=== PATIENT | female | born 2000 | race Caucasian/White ===

== ENCOUNTER 2022-07-22 13:49 | Outpatient (CLI) | payer BC | END 2022-07-22 13:50 | disposition home or self-care (01) | LOC: CSHULT 13:49 | PROVIDERS: ATTEND Family Medicine | DX: Z34.02 Encounter for supervision of normal first pregnancy, second trimester (principal); Z3A.20 20 weeks gestation of pregnancy | CPT/HCPCS: 76805 ==

== ENCOUNTER 2022-12-09 12:59 | Inpatient (IN) | payer BC, OTHER ==
[2022-12-09] MEDS ORDERED: Misoprostol 200 MCG TAB PR PRN (20:02)
[2022-12-09] MEDS ORDERED: Methylergonovine 0.2 MG/ML VIAL IM PRN (20:02)
[2022-12-09] MEDS ORDERED: Acetaminophen 500 MG TAB PO PRN (20:02)
[2022-12-09] MEDS ORDERED: Diphenoxylate HCl/Atropine Tablet PO PRN (20:02)
[2022-12-09] MEDS ORDERED: hydrALAZINE 20 MG/ML VIAL SLOW IVP PRN (20:02)
[2022-12-09] MEDS ORDERED: HYDROcodone/Acetaminophen 5/325 mg Tablet PO PRN (20:02)
[2022-12-09] MEDS ORDERED: Lactated Ringer's 1,000 ML IV SCH (20:02)
[2022-12-09] MEDS ORDERED: Promethazine HCl 25 MG/ML VIAL IM PRN (20:02)
[2022-12-09] MEDS ORDERED: Tranexamic Acid 1,000 MG/10 ML VIAL IVP PRN (20:02)
[2022-12-09] MEDS ORDERED: Lidocaine 1% (PF) 30 ML VIAL SC PRN (20:02)
[2022-12-09] MEDS ORDERED: Oxytocin 30 units/NS 500 ML 500 ML IV SCH ×3 (20:02)
[2022-12-09] MEDS ORDERED: Ibuprofen 800 MG TAB PO PRN (20:02)
[2022-12-09] MEDS ORDERED: fentaNYL 50 mcg/mL 1 mL Vial SLOW IVP PRN (20:02)
[2022-12-09] MEDS ORDERED: Carboprost 250 MCG/ML AMP IM PRN (20:02)
[2022-12-09] MEDS ORDERED: Ondansetron PF 4 MG/2 ML Vial IVP PRN (20:02)
[2022-12-09 20:26] VITALS: BMI 31.4
[2022-12-09 21:07] LABS: Hemoglobin 12.2 g/dL (12.0-15.5); Mean Corpuscular HGB CONC 35.9 g/dL (32.0-36.0); Mean Corpuscular Volume 89.2 fl (81.6-98.3); Mean Platelet Volume 12.7 fl (7.4-10.4); Platelet Count 196 10x3/uL (150-450); RBC Distribution Width 12.3 % (11.5-14.5); Red Blood Cell (RBC) Count 3.81 10x6/uL (3.90-5.03); White Blood Cell (WBC) Count 10.7 10x3/uL (3.5-10.5)
[2022-12-09 21:17] LABS: HBSAg Index 0.21 S/CO (0-0.99); Hep B Surf Ag - L&D Non-Reactive S/CO (NonReactive)
[2022-12-09 21:18] LABS: Syphilis Antibody Nonreactive (Nonreactive); Syphilis Antibody Index 0.04 S/CO (<1.00 Non-Reactive)
[2022-12-10] MEDS: Misoprostol 100 MCG TAB VAG SCH ×3 (13:49→20:05)
[2022-12-11] MEDS: Misoprostol 100 MCG TAB VAG SCH ×2 (01:00→18:04)
[2022-12-11] MEDS ORDERED: fentaNYL/Ropivacaine Epidural 100 ML ONE (08:09)
[2022-12-11] MEDS ORDERED: ePHEDrine Sulfate 50 MG/10 ML VIAL SLOW IVP PRN (09:21)
[2022-12-11] MEDS ORDERED: Lactated Ringer's 500 ML IV PRN (09:21)
[2022-12-11] MEDS ORDERED: Acetaminophen 325 MG TAB PO PRN (09:21)
[2022-12-11] MEDS ORDERED: Naloxone HCl 0.4 mg/ml Vial IVP PRN ×4 (09:21→13:26)
[2022-12-11] MEDS ORDERED: Promethazine HCl 25 MG/ML VIAL IM PRN ×3 (09:21→16:20)
[2022-12-11] MEDS ORDERED: diphenhydrAMINE 50 MG/ML VIAL IVP PRN ×2 (09:21→13:26)
[2022-12-11] MEDS ORDERED: Moisturizing Cream (Eucerin) 113 GM JAR TOP PRN ×2 (09:21→13:26)
[2022-12-11] MEDS ORDERED: Ondansetron PF 4 MG/2 ML Vial IVP PRN ×3 (09:21→16:20)
[2022-12-11] MEDS ORDERED: ACTIVE EPIDURAL FS PRN (09:30)
[2022-12-11] MEDS ORDERED: fentaNYL 2 mcg/Ropivacaine 0.2% Epidural 100 ML CADD EPIDURAL SCH (09:30)
[2022-12-11] MEDS ORDERED: Azithromycin 500 MG VIAL ONE (12:40)
[2022-12-11] MEDS ORDERED: CEFAZOLIN 2 GM VIAL ONE (12:40)
[2022-12-11] MEDS ORDERED: Oxytocin 10 UNITS/ML VIAL ONE (12:50)
[2022-12-11] MEDS ORDERED: Morphine PF 10 MG/10 ML VIAL ONE (12:57)
[2022-12-11] MEDS ORDERED: Ondansetron PF 4 MG/2 ML Vial ONE (13:09)
[2022-12-11] MEDS ORDERED: Promethazine HCl 25 MG SUPP PR PRN (13:26)
[2022-12-11] MEDS ORDERED: Ketorolac Tromethamine 30 MG/ML VIAL IVP PRN (13:26)
[2022-12-11] MEDS ORDERED: Ondansetron HCl/PF 4 MG/2 ML Vial IVP PRN (13:26)
[2022-12-11] MEDS ORDERED: Fentanyl 50 MCG/1 ML VIAL SLOW IVP PRN (13:26)
[2022-12-11] MEDS ORDERED: Naloxone HCl 0.4 mg/ml Vial IV PRN (13:26)
[2022-12-11] MEDS ORDERED: Meperidine HCl/PF 25 MG/ML VIAL SLOW IVP PRN (13:26)
[2022-12-11] MEDS ORDERED: Communication Order-Pharmacy FS SCH (13:30)
[2022-12-11] MEDS ORDERED: Ketorolac Tromethamine 30 MG/ML VIAL IVP SCH (13:30)
[2022-12-11] MEDS ORDERED: diphenhydrAMINE 25 MG CAP PO PRN (16:20)
[2022-12-11] MEDS ORDERED: hydrALAZINE 20 MG/ML VIAL SLOW IVP PRN (16:20)
[2022-12-11] MEDS ORDERED: Simethicone Chewable 80 MG TAB PO PRN (16:20)
[2022-12-11] MEDS ORDERED: Lanolin Ointment 7 GM TUBE TOP PRN (16:20)
[2022-12-11] MEDS ORDERED: Bisacodyl 10 MG SUPP PR PRN (16:20)
[2022-12-11] MEDS ORDERED: Boostrix 0.5 ML (Tdap) VIAL (>/=7 yrs of age) IM ONE (16:20)
[2022-12-11] MEDS: Docusate 100 MG CAP PO SCH (20:12)
[2022-12-11] MEDS: Ketorolac Tromethamine 30 MG/ML VIAL IVP SCH (20:12)
[2022-12-11] MEDS: Ferrous Sulfate 325 MG TAB PO SCH (20:16)
[2022-12-12] MEDS: Ketorolac Tromethamine 30 MG/ML VIAL IVP SCH ×2 (01:41→08:06)
[2022-12-12 04:17] LABS: Hematocrit 28.5 % (34.9-44.5); Hemoglobin 10.1 g/dL (12.0-15.5); Mean Corpuscular HGB CONC 35.4 g/dL (32.0-36.0); Mean Corpuscular Hemoglobin 32.2 pg (27.0-33.0); Mean Corpuscular Volume 90.8 fl (81.6-98.3); Platelet Count 129 10x3/uL (150-450); RBC Distribution Width 12.1 % (11.5-14.5); Red Blood Cell (RBC) Count 3.14 10x6/uL (3.90-5.03); White Blood Cell (WBC) Count 12.9 10x3/uL (3.5-10.5)
[2022-12-12] MEDS: Docusate 100 MG CAP PO SCH ×2 (09:40→21:31)
[2022-12-12] MEDS: Prenatal Vitamin 1 TAB PO SCH (09:40)
[2022-12-12] MEDS: Ferrous Sulfate 325 MG TAB PO SCH (09:42)
[2022-12-12] MEDS: Ibuprofen 800 MG TAB PO SCH ×2 (14:30→21:30)
[2022-12-12] MEDS: HYDROcodone/Acetaminophen 5/325 mg Tablet PO PRN ×2 (14:30→19:24)
[2022-12-13] MEDS: HYDROcodone/Acetaminophen 5/325 mg Tablet PO PRN ×3 (00:08→19:59)
[2022-12-13] MEDS: Ibuprofen 800 MG TAB PO SCH ×3 (05:47→21:38)
[2022-12-13] MEDS: Ferrous Sulfate 325 MG TAB PO SCH ×2 (07:16→08:28)
[2022-12-13] MEDS: Docusate 100 MG CAP PO SCH ×2 (08:28→21:38)
[2022-12-13] MEDS: Prenatal Vitamin 1 TAB PO SCH (08:28)
[2022-12-14] MEDS: HYDROcodone/Acetaminophen 5/325 mg Tablet PO PRN ×3 (00:06→08:50)
[2022-12-14] MEDS: Ferrous Sulfate 325 MG TAB PO SCH ×2 (04:18→10:48)
[2022-12-14] MEDS: Ibuprofen 800 MG TAB PO SCH (06:07)
[2022-12-14 07:47] VITALS: BP 123/77; TEMP 97.7
[2022-12-14] MEDS: Docusate 100 MG CAP PO SCH (08:50)
[2022-12-14] MEDS: Prenatal Vitamin 1 TAB PO SCH (08:50)
== END 2022-12-14 12:30 | disposition home or self-care (01) | DRG 788 ==
LOC: CSHLD 19:44 → CSHPP 12-11 15:55
PROVIDERS: ADMIT Family Medicine; ATTEND Family Medicine
PROC: 10D00Z1 Extraction of Products of Conception, Low, Open Approach (ICD-10-PCS; principal; 2022-12-11)
PROC: 10907ZC Drainage of Amniotic Fluid, Therapeutic from Products of Conception, Via Natural or Artificial Opening (ICD-10-PCS; 2022-12-11)
PROC: 10H07YZ Insertion of Other Device into Products of Conception, Via Natural or Artificial Opening (ICD-10-PCS; 2022-12-11)
DX: O76 Abnormality in fetal heart rate and rhythm complicating labor and delivery (principal); Z3A.40 40 weeks gestation of pregnancy; Z37.0 Single live birth; O48.0 Post-term pregnancy
CPT/HCPCS: 36415; 51702; 82805; 85027; 86780; 86850; 86900; 86901; 87340; 88307; J0456; J1885; J2274; J2405; J2590